=== PATIENT | male | born 1960 | race Two or more races ===

== ENCOUNTER 2025-04-18 16:42 | Inpatient (IN) | payer OTHER ==
[~2025-04-18] VITALS: Ht 180.3 cm; Wt 102.1 kg
[2025-04-18] MEDS: SODIUM CHLORIDE 0.9% 1,000 ML IV ONE (17:35)
[2025-04-18] MEDS: PANTOPRAZOLE SODIUM 40 MG/VIAL IV ONE (17:35)
[2025-04-18 18:05] LABS: BASOPHILS % 0.3 % (0.0-2.0); EOSINOPHILS % 0.1 % (0.0-5.0); HEMATOCRIT. 45.1 % (42.0-52.0); HEMOGLOBIN. 14.9 g/dL (14.0-18.0); LYMPHOCYTES % 14.0 % (20.0-50.0); MEAN PLATELET VOLUME 9.1 fl (7.4-10.4); MONOCYTES % 4.2 % (2.0-8.0); NEUTROPHILS % 81.4 % (40.0-76.0); PLATELET 264 x1000/uL (130-400); RED BLOOD CELL COUNT 4.77 mill/uL (4.7-6.1); RED CELL DISTRIBUTION WIDTH 13.7 % (11.6-14.6)
[2025-04-18 18:11] LABS: CREATININE 1.1 mg/dL (0.6-1.3)
[2025-04-18 18:12] LABS: ETHANOL BLOOD < 10 mg/dL (<10); TROPONIN I HIGH SENSITIVITY 5 ng/L (3.0-53); UREA NITROGEN BLOOD 14 mg/dL (9-23)
[2025-04-18 18:14] LABS: ASPARTATE AMINOTRANSFERASE 30 IU/L (<34); BILIRUBIN DIRECT 0.2 mg/dL (<=3.0); BILIRUBIN TOTAL 0.7 mg/dL (0.1-1.0); PROTEIN TOTAL 8.8 g/dL (6.0-8.3)
[2025-04-18 18:26] LABS: INR 1.2
[2025-04-18 19:15] LABS: CLARITY URINE CLEAR (CLEAR); COLOR URINE YELLOW (YELLOW); GLUCOSE URINE 3+ (NEGATIVE); KETONES URINE NEGATIVE (NEGATIVE); LEUKOCYTE ESTERASE URINE NEGATIVE (NEGATIVE); NITRITE URINE NEGATIVE (NEGATIVE); OCCULT BLOOD URINE NEGATIVE (NEGATIVE); PH URINE 5.5 (4.5-8.0); PROTEIN URINE 2+ (NEGATIVE); SPECIFIC GRAVITY URINE 1.016 (1.005-1.030); UROBILINOGEN URINE 0.2 E.U./dL (0.2-1.0)
[2025-04-18 19:34] LABS: BACTERIA URINE TRACE; HYALINE CASTS URINE 0-5 /lpf; RBC URINE 0-2 /hpf (0-2); SQUAMOUS EPITHELIAL CELL URINE 1+ /lpf (RARE/1+); WBC URINE 0-2 /hpf (0-2)
[2025-04-18 19:45] VITALS: BP 150/94; PULSE 89; RESP 18; TEMP 37.0852; TEMP 37.1; O2SAT 98
[2025-04-18] MEDS ORDERED: DEXTROSE 50% WATER 50ML SYRINGE IV PRN ×2 (21:30→23:30)
[2025-04-18] MEDS ORDERED: DAPA5TAB PO (23:06)
[2025-04-18] MEDS ORDERED: AMOX-494 PO (23:06)
[2025-04-18] MEDS ORDERED: LISI-186 PO (23:06)
[2025-04-18] MEDS ORDERED: ICOS1CAP PO (23:06)
[2025-04-18] MEDS ORDERED: ASPI-1406 PO (23:06)
[2025-04-18] MEDS ORDERED: ERGO1250 PO (23:06)
[2025-04-18] MEDS ORDERED: METF-416 PO (23:06)
[2025-04-18] MEDS ORDERED: CLONIDINE 0.1MG TABLET PO PRN (23:30)
[2025-04-18] MEDS ORDERED: ONDANSETRON HCL 4MG/2ML INJ IV PRN (23:30)
[2025-04-18] MEDS ORDERED: DIPHENHYDRAMINE 50MG/ML VIAL IV PRN (23:30)
[2025-04-18] MEDS ORDERED: ZOLPIDEM TARTRATE 5MG TABLET PO PRN (23:30)
[2025-04-18] MEDS ORDERED: ACETAMINOPHEN 325MG TABLET PO PRN ×2 (23:30)
[2025-04-19] VITALS: BP 135/81; PULSE 70; RESP 18; TEMP 36.6; O2SAT 96
[2025-04-19] MEDS: SODIUM CHLORIDE 0.9% 1,000 ML IV SCH (00:02)
[2025-04-19 04:00] VITALS: BP 127/83; PULSE 61; RESP 18; TEMP 36.4; O2SAT 95
[2025-04-19] MEDS: SODIUM CHLORIDE 0.9% 3ML FLUSH IVF SCH (06:03)
[2025-04-19] MEDS: BLOOD SUGAR DIAGNOSTIC STRIP TEST SCH (06:06)
[2025-04-19] MEDS ORDERED: BLOOD SUGAR DIAGNOSTIC STRIP TEST SCH (06:45)
[2025-04-19] MEDS ORDERED: INSULIN LISPRO 100 UNITS/ML SUBCUT SCH (07:15)
[2025-04-19] MEDS: INSULIN LISPRO 100 UNITS/ML SUBCUT SCH (07:15)
[2025-04-19 07:28] LABS: TROPONIN I HIGH SENSITIVITY 8 ng/L (3.0-53)
[2025-04-19 08:00] VITALS: BP 120/70; PULSE 63; RESP 15; TEMP 36.5; O2SAT 98
[2025-04-19] MEDS ORDERED: PANTOPRAZOLE SODIUM 40 MG/VIAL IV SCH (09:00)
[2025-04-19] MEDS: TAMSULOSIN HCL 0.4MG SR CAPSULE PO SCH (09:00)
[2025-04-19] MEDS: LISINOPRIL 5MG TABLET PO SCH (09:00)
[2025-04-19 12:00] VITALS: BP 138/80; PULSE 55; RESP 15; TEMP 36.8; O2SAT 98
[2025-04-19 13:24] VITALS: BP 138/80; PULSE 55; TEMP 98.2; O2SAT 98
== END 2025-04-19 15:43 | disposition home or self-care (01) | DRG 392 ==
LOC: ER 16:42 → EDBEDREQTM 19:17 → EDBEDREQ 19:17 → ENRESERV 19:23 → 5WST 19:47
PROVIDERS: ADMIT Internal Medicine; ATTEND Internal Medicine
DX: K52.9 Noninfective gastroenteritis and colitis, unspecified (principal); I10 Essential (primary) hypertension; E11.9 Type 2 diabetes mellitus without complications; E78.1 Pure hyperglyceridemia
CPT/HCPCS: 36415; 71045; 74176; 80048; 80076; 80320; 81003; 82962; 83036; 84484; 85025; 93005; 99285; A4606; J2470; J7030; G0480